=== PATIENT | male | born 1965 | race African-American/Black ===

== ENCOUNTER 2018-07-17 23:33 | Emergency (ER) | payer MEDICAID ==
[~2018-07-17] VITALS: Ht 185.4 cm; Wt 87.0 kg
[2018-07-18] MEDS ORDERED: IBUPROFEN 600MG TABLET PO ONE (03:30)
[2018-07-18] MEDS ORDERED: HYDROCODONE/ACETAMINOPHEN 5/325MG TABLET PO ONE (03:45)
[2018-07-18 06:15] VITALS: BP 165/98
== END 2018-07-18 06:28 | disposition home or self-care (01) ==
LOC: ER 23:33
DX: M25.512 Pain in left shoulder (principal); I10 Essential (primary) hypertension; F17.210 Nicotine dependence, cigarettes, uncomplicated
CPT/HCPCS: 73030; 99283

== ENCOUNTER 2018-07-22 23:08 | Emergency (ER) | payer MEDICAID ==
[~2018-07-22] VITALS: Ht 182.9 cm; Wt 93.0 kg
[2018-07-23] MEDS ORDERED: TRAMADOL HCL/ACETAMINOPHEN 37.5/325MG TABLET PO ONE (01:15)
[2018-07-23 02:32] VITALS: BP 124/84
== END 2018-07-23 02:34 | disposition home or self-care (01) ==
LOC: ER 23:08
DX: G89.29 Other chronic pain (principal); M25.512 Pain in left shoulder; M25.511 Pain in right shoulder; M54.12 Radiculopathy, cervical region
CPT/HCPCS: 99283

== ENCOUNTER 2018-07-29 07:48 | Emergency (ER) | payer MEDICAID ==
[~2018-07-29] VITALS: Ht 182.9 cm; Wt 95.0 kg
[2018-07-29] MEDS ORDERED: NAPROXEN 375MG TABLET PO ONE (10:00)
[2018-07-29 10:18] VITALS: BP 174/92
== END 2018-07-29 10:18 | disposition home or self-care (01) ==
LOC: ER 07:48
DX: M25.512 Pain in left shoulder (principal); M25.511 Pain in right shoulder; M54.2 Cervicalgia; W23.0XXA Caught, crushed, jammed, or pinched between moving objects, initial encounter; Y93.89 Activity, other specified; Y92.811 Bus as the place of occurrence of the external cause
CPT/HCPCS: 99282

== ENCOUNTER 2024-09-12 20:08 | Emergency (ER) | payer MEDICAID, OTHER ==
[~2024-09-12] VITALS: Ht 182.9 cm; Wt 86.0 kg
[~2024-09-12 20:08] MED LIST: ABIL5 PO; ASPI-1160 PO; COR6 PO; FURO-151 MT; LIP40 PO; SACU1TAB PO; SERT25TA74 PO; SPIR25TA PO; TAMS-54 PO
[2024-09-12 20:13] VITALS: BP 147/113; PULSE 64; RESP 18; TEMP 36.9; O2SAT 98
[2024-09-14] MEDS ORDERED: FURO-151 MT (16:07)
[2024-09-14] MEDS ORDERED: ABIL5 PO (16:07)
[2024-09-14] MEDS ORDERED: ASPI-1160 PO (16:07)
[2024-09-14] MEDS ORDERED: EMPA10TA PO (16:07)
== END 2024-09-12 21:09 | disposition left against medical advice (07) ==
LOC: ER 20:08
DX: R07.89 Other chest pain (principal); R06.02 Shortness of breath; I11.0 Hypertensive heart disease with heart failure; I50.9 Heart failure, unspecified; Z79.899 Other long term (current) drug therapy; Z79.82 Long term (current) use of aspirin
CPT/HCPCS: 93005; 99283